=== PATIENT | female | born 1960 | race Two or more races ===

== ENCOUNTER 2020-10-24 12:22 | Day surgery (SDC) | payer MEDICARE, SELFPAY ==
[~2020-10-24 12:22] MED LIST: Cefuroxime 10 MG/ML SYRINGE EYELF SCH
[2020-10-24] MEDS ORDERED: LORazepam 0.5 MG Tab PO ONE (12:45)
[2020-10-24] MEDS: Polymyxin B/Trimethoprim 10 ML Bottle EYELF SCH ×4 (12:47→14:37)
--- NOTE | 2020-10-24 12:51 | PCM.PREANE ---
Preanesthetic Assessment - Procedure Proposed Procedure: left eye cataract extraction with IOL - Anesthesia/Transfusion/Family Hx Anesthesia History: Prior Anesthesia Without Reaction Family History of Anesthesia Reaction: No Transfusion History: Prior Transfusion Without Reaction - Review of Systems General: No Symptoms Pulmonary: No Symptoms (COPD) Cardiovascular: Dyspnea on Exertion Gastrointestinal: Nausea Neurological: Numbness (fingers mostly right arm epidural steroid shot every three months), Gait Disturbance Other: Reports: Liver Problems (shuntingf on liver and cyst on it), Neck Pain, Anxiety - Physical Assessment NPO Status Date: 10/23/20 NPO Status Time: 00:00 Height: 1.75 m Weight: 89.811 kg ASA Class: 3 Mental Status: Alert & Oriented x3 Airway Class: Mallampati = 2 Dentition: Reports: Partial Thyro-Mental Finger Breadths: 3 Mouth Opening Finger Breadths: 2 ROM/Head Extension: Limited/Partial (metal in neck) Lungs: Clear to Auscultation, Normal Respiratory Effort Cardiovascular: Regular Rate, Regular Rhythm - Allergies Allergies/Adverse Reactions: Allergies Allergy/AdvReac Type Severity Reaction Status Date / Time No Known Allergies Allergy Verified 10/23/20 15:20 - Blood Blood Available: No Product(s) Available: None - Anesthesia Plan Pre-Op Medication Ordered: None - Acknowledgements Anesthesia Type Planned: MAC Pt an Appropriate Candidate for the Planned Anesthesia: Yes Alternatives and Risks of Anesthesia Discussed w Pt/Guardian: Yes Pt/Guardian Understands and Agrees with Anesthesia Plan: Yes PreAnesthesia Questionnaire Gastrointestinal History: Reports: GERD - SUBSTANCE USE Tobacco Use Status *Q: Former Tobacco User Tobacco Use Within Last Twelve Months: Cigarettes Second Hand Smoke Exposure: Yes Days Per Week of Alcohol Use: 1 Number of Drinks Per Day: 0 Total Drinks Per Week: 0 Recreational Drug Use History: No - CURRENT (IN HOUSE) MEDS Current Meds: Current Medications Brimonidine Tartrate (Brimonidine 0.2% Ophth Soln 5 Ml Bottle) 0 ml EYELF ASDIRECTED RAJNI Stop: 10/24/20 18:00 Cefuroxime Sodium (Cefuroxime 10 Mg/Ml Syringe) 0 mg EYELF ASDIRECTED RAJNI Stop: 10/24/20 18:00 Lidocaine HCl (Lidocaine 1% Pf 2 Ml Sdv) 0 ml INJECT ASDIRECTED RAJNI Stop: 10/24/20 18:00 Lorazepam (Lorazepam 0.5 Mg Tab) 0.5 mg PO ONETIME ONE Stop: 10/24/20 12:46 Phenylephrine HCl (Phenylephrine 2.5% Ophth Soln 2 Ml Bot) 0 ml EYELF ASDIRECTED RAJNI Stop: 10/24/20 18:00 Pilocarpine HCl (Pilocarpine 4% Ophth Soln 15 Ml Bot) 0 ml EYELF ASDIRECTED RAJNI Stop: 10/24/20 18:00 Polymyxin/Trimethoprim Sulfate (Polymyxin B/Trimethoprim 10 Ml Bottle) 0 ml EYELF ASDIRECTED RAJNI Stop: 10/24/20 18:00 Tetracaine HCl (Tetracaine Hcl/Pf 0.5% 4 Ml Bottle) 0 ml EYEBOTH ASDIRECTED RAJNI Stop: 10/24/20 18:00 Tropicamide (Tropicamide 1% Ophth Soln 15 Ml Bottle) 0 ml EYELF ASDIRECTED RAJNI Stop: 10/24/20 18:00
[2020-10-24] MEDS: Brimonidine 0.2% Ophth Soln 5 ML Bottle EYELF SCH ×4 (12:52→14:35)
[2020-10-24] MEDS: Phenylephrine 2.5% Ophth Soln 2 ML Bot EYELF SCH ×6 (12:57→14:34)
[2020-10-24] MEDS: Tropicamide 1% Ophth Soln 15 ML Bottle EYELF SCH ×4 (13:02→13:26)
[2020-10-24] MEDS: Tetracaine HCl/PF 0.5% 4 ML Bottle EYEBOTH SCH ×3 (13:28→14:34)
[2020-10-24] MEDS: Lidocaine 1% PF 2 ML SDV INJECT SCH ×2 (13:35→14:34)
[2020-10-24] MEDS: Pilocarpine 4% Ophth Soln 15 ML Bot EYELF SCH ×2 (13:53→14:35)
--- NOTE | 2020-10-24 13:54 | PCM48HPAN ---
Post Anesthesia Note - EVALUATION WITHIN 48HRS OF ANESTHETIC Vital Signs in Normal Range: Yes Patient Participated in Evaluation: Yes Respiratory Function Stable: Yes Airway Patent: Yes Cardiovascular Function Stable: Yes Hydration Status Stable: Yes Pain Control Satisfactory: Yes Nausea and Vomiting Control Satisfactory: Yes Mental Status Recovered: Yes
== END 2020-10-24 14:11 | disposition home or self-care (01) ==
LOC: JD.SDS 12:22
PROVIDERS: ATTEND Ophthalmology
DX: H25.813 Combined forms of age-related cataract, bilateral (principal); H16.223 Keratoconjunctivitis sicca, not specified as Sjogren's, bilateral; H02.831 Dermatochalasis of right upper eyelid; H02.834 Dermatochalasis of left upper eyelid; J44.9 Chronic obstructive pulmonary disease, unspecified; E78.00 Pure hypercholesterolemia, unspecified; E03.9 Hypothyroidism, unspecified; Z98.890 Other specified postprocedural states; Z79.899 Other long term (current) drug therapy; Z79.890 Hormone replacement therapy; Z88.0 Allergy status to penicillin
CPT/HCPCS: 66984; A9270; C1780

== ENCOUNTER 2020-11-28 11:25 | Day surgery (SDC) | payer MEDICARE, OTHER ==
[~2020-11-28 11:25] MED LIST changes: -Cefuroxime 10 MG/ML SYRINGE EYELF SCH; +Cefuroxime 10 MG/ML SYRINGE EYERT SCH; +Lidocaine 1% PF 2 ML SDV INJECT SCH; +Pilocarpine 4% Ophth Soln 15 ML Bot EYERT SCH
[2020-11-28] MEDS ORDERED: LORazepam 0.5 MG Tab PO ONE (11:55)
[2020-11-28] MEDS: Polymyxin B/Trimethoprim 10 ML Bottle EYERT SCH ×3 (12:08→13:58)
--- NOTE | 2020-11-28 12:10 | PCM.PREANE ---
Preanesthetic Assessment - Procedure Proposed Procedure: cataract right - Anesthesia/Transfusion/Family Hx Anesthesia History: Prior Anesthesia Without Reaction Family History of Anesthesia Reaction: No Transfusion History: Prior Transfusion Without Reaction - Review of Systems General: No Symptoms Pulmonary: No Symptoms Cardiovascular: No Symptoms Gastrointestinal: No Symptoms Neurological: No Symptoms Other: Reports: Thyroid Problems - Physical Assessment NPO Status Date: 11/27/20 NPO Status Time: 23:55 Vital Signs: 131/59 74 96% 20 97.9 Height: 5 ft 9 in Weight: 90.718 kg ASA Class: 2 Mental Status: Alert & Oriented x3 Airway Class: Mallampati = 1 Dentition: Reports: Normal Dentition Thyro-Mental Finger Breadths: 3 Mouth Opening Finger Breadths: 3 ROM/Head Extension: Full Lungs: Clear to Auscultation, Normal Respiratory Effort Cardiovascular: Regular Rate, Regular Rhythm - Allergies Allergies/Adverse Reactions: Allergies Allergy/AdvReac Type Severity Reaction Status Date / Time Penicillins Allergy Airway Verified 11/27/20 11:12 Tightness - Blood Blood Available: No - Acknowledgements Anesthesia Type Planned: MAC Pt an Appropriate Candidate for the Planned Anesthesia: Yes Alternatives and Risks of Anesthesia Discussed w Pt/Guardian: Yes Pt/Guardian Understands and Agrees with Anesthesia Plan: Yes PreAnesthesia Questionnaire Cardiovascular History: Reports: High Cholesterol, Hypertension Respiratory History: Reports: COPD Gastrointestinal History: Reports: GERD Musculoskeletal History: Reports: Arthritis, Fibromyalgia Psychiatric History: Reports: Anxiety Oncologic (Cancer) History: Reports: None - Past Surgical History HEENT Surgical History: Reports: Adenoidectomy, Tonsillectomy, Other (See Below) (lymph nodes removed neck) GI Surgical History: Reports: Appendectomy, Cholecystectomy, Hernia, Inguinal Female Surgical History: Reports: Section Neurological Surgical History: Reports: Other (See Below) (fusion neck) Musculoskeletal Surgical History: Reports: Other (See Below) (lipoma in left calf) - SUBSTANCE USE Tobacco Use Status *Q: Former Tobacco User Tobacco Use Within Last Twelve Months: No Second Hand Smoke Exposure: No Days Per Week of Alcohol Use: 0 Recreational Drug Use History: No - HOME MEDS Home Medications: Home Meds Albuterol [Ventolin HFA] 8 gm IH ASDIRECTED 10/24/20 [History] Baclofen 10 mg PO ASDIRECTED PRN 10/24/20 [History] Levothyroxine [Synthroid] 50 mcg PO DAILY 10/24/20 [History] Rosuvastatin [Crestor] 10 mg PO DAILY 10/24/20 [History] Zolpidem [Ambien] 10 mg PO BEDTIME PRN 10/24/20 [History] amLODIPine [Norvasc] 5 mg PO DAILY 10/24/20 [History] - CURRENT (IN HOUSE) MEDS Current Meds: Current Medications Brimonidine Tartrate (Brimonidine 0.2% Ophth Soln 5 Ml Bottle) 0 ml EYERT ASDIRECTED RAJNI Stop: 11/28/20 18:00 Cefuroxime Sodium (Cefuroxime 10 Mg/Ml Syringe) 0 mg EYERT ASDIRECTED RAJNI Stop: 11/28/20 18:00 Lidocaine HCl (Lidocaine 1% Pf 2 Ml Sdv) 0 ml INJECT ASDIRECTED RAJNI Stop: 11/28/20 18:00 Phenylephrine HCl (Phenylephrine 2.5% Ophth Soln 2 Ml Bot) 0 ml EYERT ASDIRECTED RAJNI Stop: 11/28/20 18:00 Pilocarpine HCl (Pilocarpine 4% Ophth Soln 15 Ml Bot) 0 ml EYERT ASDIRECTED RAJNI Stop: 11/28/20 18:00 Polymyxin/Trimethoprim Sulfate (Polymyxin B/Trimethoprim 10 Ml Bottle) 0 ml EYERT ASDIRECTED RAJNI Stop: 11/28/20 18:00 Tetracaine HCl (Tetracaine Hcl/Pf 0.5% 4 Ml Bottle) 0 ml EYEBOTH ASDIRECTED RAJNI Stop: 11/28/20 18:00 Tropicamide (Tropicamide 1% Ophth Soln 15 Ml Bottle) 0 ml EYERT ASDIRECTED RAJNI Stop: 11/28/20 18:00 Discontinued Medications Lorazepam (Lorazepam 0.5 Mg Tab) 0.5 mg PO ONETIME ONE Stop: 11/28/20 11:56
[2020-11-28] MEDS: Brimonidine 0.2% Ophth Soln 5 ML Bottle EYERT SCH ×3 (12:14→13:58)
[2020-11-28] MEDS: Phenylephrine 2.5% Ophth Soln 2 ML Bot EYERT SCH ×5 (12:21→13:36)
[2020-11-28] MEDS: Tropicamide 1% Ophth Soln 15 ML Bottle EYERT SCH ×4 (12:26→13:15)
[2020-11-28] MEDS: Tetracaine HCl/PF 0.5% 4 ML Bottle EYEBOTH SCH ×2 (13:26→13:46)
--- NOTE | 2020-11-28 13:59 | PCM48HPAN ---
Post Anesthesia Note - EVALUATION WITHIN 48HRS OF ANESTHETIC Vital Signs in Normal Range: Yes Patient Participated in Evaluation: Yes Respiratory Function Stable: Yes Airway Patent: Yes Cardiovascular Function Stable: Yes Hydration Status Stable: Yes Pain Control Satisfactory: Yes Nausea and Vomiting Control Satisfactory: Yes Mental Status Recovered: Yes Vital Signs: Last Vital Signs Temp 36.6 C 11/28/20 11:30 Pulse 74 11/28/20 11:30 Resp 20 11/28/20 11:30 BP 131/59 L 11/28/20 11:30 Pulse Ox 96 11/28/20 11:30
== END 2020-11-28 14:09 | disposition home or self-care (01) ==
LOC: JD.SDS 11:25
PROVIDERS: ATTEND Ophthalmology
DX: H25.811 Combined forms of age-related cataract, right eye (principal); I10 Essential (primary) hypertension; E03.9 Hypothyroidism, unspecified; J44.9 Chronic obstructive pulmonary disease, unspecified; E78.00 Pure hypercholesterolemia, unspecified
CPT/HCPCS: 66984; A9270; J0697; C1780

== ENCOUNTER 2021-02-19 08:30 | Emergency (ER) | payer MEDICARE ==
[2021-02-19] MEDS ORDERED: Cetirizine 10 MG Tab PO ONE (09:24)
[2021-02-19] MEDS ORDERED: hydrOXYzine HCl 25 MG Tab PO ONE (09:24)
--- NOTE | 2021-02-19 10:01 | EDM.PDOC ---
ED HPI GENERAL MEDICAL PROBLEM - General Chief Complaint: Allergic Reaction Stated Complaint: POSS ALLERGIC REACTION TO MED Time Seen by Provider: 02/19/21 09:07 Source of Information: Reports: Patient History Limitations: Reports: No Limitations - History of Present Illness INITIAL COMMENTS - FREE TEXT/NARRATIVE: 60-year-old female presents the emergency department today with complaints of pruritus. Patient states that this started 3 days ago. There is no rash associated with the pruritus. Patient states that it is all over her body and she suspects it is due to her Pristiq that was started 1 month ago. She states she phoned her primary care provider 3 days ago when the itching started and he she was advised to discontinue her Pristiq. She has not taken the medication since then. She states that the pruritus has become more severe and elected to come to the emergency department as she did not think she be able to get in with her primary care provider. She states she feels as though her throat is closing and it is becoming difficult to breathe. She has not had any recent fever, chills, nausea, vomiting or diarrhea. She denies any urinary symptoms. She has not started using any new lotions or fragrances or detergents. She has not eaten any new foods. She is allergic to Benadryl. She states her plastics fitter told her not to take it as it did cause tachycardia. Treatments WEB OPERATIONS MANAGER: Reports: Other (see below) Other Treatments WEB OPERATIONS MANAGER: rubbing alcohol - Related Data Allergies Allergy/AdvReac Type Severity Reaction Status Date / Time diphenhydramine Allergy Airway Verified 02/19/21 09:08 [From Benadryl] Tightness Penicillins Allergy Airway Verified 11/27/20 11:12 Tightness quetiapine [From Seroquel] Allergy Hives Verified 02/19/21 09:08 contrast dye Allergy Hives Uncoded 02/19/21 09:08 opiates Allergy Airway Uncoded 02/19/21 09:08 Tightness Home Meds: Home Meds Albuterol [Ventolin HFA] 8 gm IH ASDIRECTED 10/24/20 [History] Baclofen 10 mg PO ASDIRECTED PRN 10/24/20 [History] Levothyroxine [Synthroid] 50 mcg PO DAILY 10/24/20 [History] Rosuvastatin [Crestor] 5 mg PO DAILY 10/24/20 [History] Zolpidem [Ambien] 5 mg PO BEDTIME PRN 10/24/20 [History] amLODIPine [Norvasc] 5 mg PO DAILY 10/24/20 [History] hydrOXYzine HCL [Atarax] 25 mg PO Q6H PRN #10 tab 02/19/21 [Rx] Past Medical History Cardiovascular History: Reports: High Cholesterol, Hypertension Respiratory History: Reports: COPD Gastrointestinal History: Reports: GERD Musculoskeletal History: Reports: Arthritis, Fibromyalgia Psychiatric History: Reports: Anxiety Oncologic (Cancer) History: Reports: None - Past Surgical History HEENT Surgical History: Reports: Adenoidectomy, Tonsillectomy, Other (See Below) (lymph nodes removed neck) GI Surgical History: Reports: Appendectomy, Cholecystectomy, Hernia, Inguinal Female Surgical History: Reports: Section Neurological Surgical History: Reports: Other (See Below) (fusion neck) Musculoskeletal Surgical History: Reports: Other (See Below) (lipoma in left calf) ED ROS ALLERGIC REACTION - Review of Systems Review Of Systems: Comprehensive ROS is negative, except as noted in HPI. ED EXAM GENERAL NO PERIP PULSE - Physical Exam Exam: See Below Exam Limited By: No Limitations General Appearance: Alert, WD/WN, No Apparent Distress Ears: Normal External Exam, Hearing Grossly Normal Nose: Normal Inspection Throat/Mouth: Normal Inspection, Normal Lips, Normal Teeth, Normal Gums, Normal Oropharynx, Normal Voice, No Airway Compromise Head: Atraumatic, Normocephalic Neck: Normal Inspection, Supple Respiratory/Chest: No Respiratory Distress, Lungs Clear, Normal Breath Sounds, No Accessory Muscle Use, Chest Non-Tender Cardiovascular: Normal Peripheral Pulses, Regular Rate, Rhythm, No Edema, No Murmur GI/Abdominal: Normal Bowel Sounds, Soft, Non-Tender, No Distention (Female) Exam: Deferred Rectal (Female) Exam: Deferred Back Exam: Normal Inspection, Full Range of Motion Extremities: Normal Inspection, Normal Range of Motion, Non-Tender, No Pedal Edema, Normal Capillary Refill Neurological: Alert, Oriented, Normal Cognition Psychiatric: Normal Affect, Normal Mood Skin Exam: Warm, Dry, Intact, Normal Color, No Rash Lymphatic: No Adenopathy Course - Vital Signs Text/Narrative:: As stated above, patient presents with a 3-day history of pruritus. There is no urticaria associated with it. She is contributing it to her Pristiq that she has been taking for approximately 1 month. She has not taken it for the past 3 days however the pruritus has continued. She is hemodynamically stable and physical exam is completely unremarkable. There is no swelling under the tongue or in her oral airway. Lung sounds are clear. There is no wheezing appreciated. Discussed the case with Dr. Harding and he recommends giving the patient Atarax for pruritus. We will also order for the patient to receive Zyrtec p.o. We will observe her and reevaluate. Last Recorded V/S: Last Vital Signs Temp 97.6 F 02/19/21 09:02 Pulse 74 02/19/21 09:02 Resp 18 02/19/21 09:02 BP 135/71 02/19/21 09:02 Pulse Ox 95 02/19/21 09:02 - Orders/Labs/Meds Meds: Medications Discontinued Medications Generic Name Dose Route Start Last Admin Trade Name Freq PRN Reason Stop Dose Admin Cetirizine HCl 10 mg 02/19/21 09:24 02/19/21 10:04 Cetirizine 10 Mg Tab PO 02/19/21 09:25 10 mg ONETIME ONE Administration Hydroxyzine HCl 25 mg 02/19/21 09:24 02/19/21 10:04 Hydroxyzine Hcl 25 Mg Tab PO 02/19/21 09:25 25 mg ONETIME ONE Administration - Re-Assessments/Exams Free Text/Narrative Re-Assessment/Exam: 02/19/21 11:00 Patient states that her urticaria has completely resolved and she is ready to be discharged home. Departure - Departure Time of Disposition: 11:05 Disposition: Home, Self-Care 01 Condition: Good Clinical Impression: Urticaria due to drug allergy - Discharge Information Prescriptions: hydrOXYzine HCL [Atarax] 25 mg PO Q6H PRN #10 tab PRN Reason: Itching Referrals: Maxx Guerin MD [Primary Care Provider] - Forms: ED Department Discharge Additional Instructions: You were seen in the emergency department today with complaints of itching associated with taking Pristiq. Despite stopping the medication 3 days ago the itching has persisted. While you are in the emergency department you are given Zyrtec and allergy medication that is [id number]. This medication will stop the histamine effect. You were also given a medication called hydroxyzine for itching. This did seem to abort the itching. I have sent a prescription for this medication to your pharmacy. You may take 1 tab every 6-8 hours as needed for itching. You will also need to take Zyrtec 1 tab daily for the next week. Should you develop any shortness of breath or difficulty breathing, it is strongly recommended that you return to the emergency department. Otherwise recommend that you follow-up with your primary care provider at the end of this week for reevaluation. Sepsis Event Note (ED) - Evaluation Sepsis Screening Result: No Definite Risk - Focused Exam Vital Signs: Vital Signs Temp Pulse Resp BP Pulse Ox 02/19/21 09:02 97.6 F 74 18 135/71 95
== END 2021-02-19 11:30 | disposition home or self-care (01) ==
LOC: JD.ED 08:30
DX: L50.0 Allergic urticaria (principal); T43.215A Adverse effect of selective serotonin and norepinephrine reuptake inhibitors, initial encounter; I10 Essential (primary) hypertension; E78.00 Pure hypercholesterolemia, unspecified; J44.9 Chronic obstructive pulmonary disease, unspecified; Z88.0 Allergy status to penicillin; Z91.041 Radiographic dye allergy status; Z88.5 Allergy status to narcotic agent; Z88.8 Allergy status to other drugs, medicaments and biological substances; Z79.899 Other long term (current) drug therapy
CPT/HCPCS: 99282; A9270; 99283

== ENCOUNTER 2023-05-15 10:03 | Emergency (ER) | payer MEDICARE ==
[2023-05-15] MEDS ORDERED: Aspirin 81 MG Tab.Chew PO ONE (10:24)
[2023-05-15 10:49] LABS: BASOPHILS ABSOLUTE AUTO 0.1 K/mm3 (0.0-0.2); BASOPHILS PERCENT AUTO 0.5 % (0.0-1.0); EOSINOPHILS ABSOLUTE AUTO 0.1 K/mm3 (0.0-0.4); EOSINOPHILS PERCENT AUTO 0.6 % (0.0-6.0); HEMATOCRIT 39.3 % (37.0-47.0); HEMOGLOBIN 12.9 gm/dl (12.0-16.0); IMMATURE GRAN PERCENT AUTO 0.9 % (0.0-0.4); LYMPHOCYTES ABSOLUTE AUTO 3.3 K/mm3 (1.0-4.8); LYMPHOCYTES PERCENT AUTO 29.6 % (24.0-44.0); MEAN CORPUSCULAR HEMOGLOBIN 29.7 pg (28.0-32.0); MEAN CORPUSCULAR HGB CONC 32.8 g/dl (32.0-36.0); MEAN CORPUSCULAR VOLUME 90.3 fl (83.0-99.0); MEAN PLATELET VOLUME 9.6 fl (9.4-12.3); MONOCYTES PERCENT AUTO 8.9 % (0.0-8.0); NEUTROPHILS ABSOLUTE AUTO 6.6 K/mm3 (1.8-7.7); NEUTROPHILS PERCENT AUTO 59.5 % (41.0-71.0); PLATELET COUNT,PLT 365 K/mm3 (150-400); RED BLOOD CELL COUNT 4.35 M/mm3 (4.10-5.30); WHITE BLOOD CELL COUNT,WBC 11.09 K/mm3 (3.9-11.3)
[2023-05-15] MEDS: Nitroglycerin 0.4 MG Tab.SL SL PRN ×2 (11:21→12:08)
[2023-05-15 11:22] LABS: A/G RATIO 0.8 (1-2); ALBUMIN 3.2 g/dl (3.4-5.0); ANION GAP 13.6 (5-15); BILIRUBIN TOTAL 0.4 mg/dL (0.2-1.0); BUN/CREATININE RATIO 12.2 (14-18); CALCIUM 9.4 mg/dL (8.5-10.1); CREATININE 0.9 mg/dL (0.55-1.02); EST CRCL DRUG DOSING (CG) 65.99 mL/min; POTASSIUM,K 3.6 mEq/L (3.5-5.1); PROTEIN TOTAL,TP 7.4 g/dl (6.4-8.2)
[2023-05-15 11:23] LABS: T4 FREE 1.36 ng/dL (0.76-1.46); TSH 2.353 uIU/mL (0.358-3.74)
[2023-05-15 11:39] LABS: APPEARANCE,URINE CLEAR (Clear); BILIRUBIN,URINE NEGATIVE (Negative); COLOR,URINE YELLOW (Yellow); GLUCOSE,URINE NEGATIVE (Negative); KETONES,URINE NEGATIVE (Negative); LEUKOCYTE ESTERASE,URINE NEGATIVE (Negative); NITRITE,URINE NEGATIVE (Negative); OCCULT BLOOD,URINE NEGATIVE (Negative); PROTEIN,URINE NEGATIVE (Negative); UROBILINOGEN,URINE 0.2 (0.2-1.0)
[2023-05-15 11:44] LABS: BARBITURATE SCREEN,URINE NEGATIVE (CUTOFF=200); BENZODIAZEPINES SCREEN,URINE NEGATIVE (CUTOFF=150); BUPRENORPHINE SCREEN,URINE NEGATIVE (CUTOFF=10); METHADONE SCREEN, URINE NEGATIVE (CUTOFF=200); METHAMPHETAMINES SCREEN, URINE NEGATIVE (CUTOFF=500); OXYCODONE SCREEN,URINE NEGATIVE (CUT0FF=100); THC SCREEN,URINE 20 NG/ML NEGATIVE (CUTOFF=50)
[2023-05-15 11:46] LABS: AMPHETAMINES SCREEN, URINE NEGATIVE (CUTOFF=500)
== END 2023-05-15 14:00 | disposition home or self-care (01) ==
LOC: JD.ED 10:03
DX: I20.9 Angina pectoris, unspecified (principal); I10 Essential (primary) hypertension; J44.9 Chronic obstructive pulmonary disease, unspecified; K21.9 Gastro-esophageal reflux disease without esophagitis; E78.00 Pure hypercholesterolemia, unspecified; Z88.8 Allergy status to other drugs, medicaments and biological substances; Z88.5 Allergy status to narcotic agent; Z79.899 Other long term (current) drug therapy
CPT/HCPCS: 36415; 71046; 80053; 80306; 81003; 83735; 83880; 84439; 84443; 84484; 85025; 85379; 93005; 99285; A9270; 93010; 99284